=== PATIENT | male | born 1965 | race Caucasian/White ===

== ENCOUNTER 2021-08-10 14:44 | Inpatient (IN) | payer OTHER ==
[~2021-08-10] VITALS: Ht 185.4 cm; Wt 111.1 kg
[2021-08-10 15:22] LABS: HEMOGLOBIN 17.2 gm/dl (14.0-17.5); RED BLOOD COUNT 5.2 M/UL (4.20-5.50); WHITE BLOOD COUNT 16.9 K/UL (4.5-11.0)
[2021-08-10] MEDS ORDERED: CYCLOBENZAPRINE10 MG PO (15:29)
[2021-08-10] MEDS ORDERED: ATORVASTATIN CA10 MG PO (15:29)
[2021-08-10] MEDS ORDERED: LOSARTAN POTAS100 MG PO (15:30)
[2021-08-10] MEDS ORDERED: MELOXICAM15 MG PO (15:30)
[2021-08-10] MEDS ORDERED: GABAPENTIN300 MG PO (15:30)
[2021-08-10] MEDS ORDERED: ZYLOPRIM 300 M300 MG PO (15:32)
[2021-08-10 16:10] LABS: BUN/CREATININE RATIO 14 (0-10)
[2021-08-10] MEDS ORDERED: VITAMIN D21250 MCG PO (17:40)
[2021-08-11 02:46] LABS: RED BLOOD COUNT 5.17 M/UL (4.20-5.50); WHITE BLOOD COUNT 20.9 K/UL (4.5-11.0)
[2021-08-11 02:58] LABS: BUN/CREATININE RATIO 20 (0-10)
[2021-08-11] MEDS ORDERED: ALLOPURINOL300 MG PO (08:35)
[2021-08-11] MEDS ORDERED: HYDROCODON-ACE1 EAC2 PO (08:35)
[2021-08-12 04:03] LABS: HEMOGLOBIN 16.1 gm/dl (14.0-17.5); RED BLOOD COUNT 4.88 M/UL (4.20-5.50); WHITE BLOOD COUNT 23.1 K/UL (4.5-11.0)
[2021-08-12 04:52] LABS: BUN/CREATININE RATIO 29 (0-10)
[2021-08-13 02:54] LABS: HEMOGLOBIN 16.9 gm/dl (14.0-17.5); RED BLOOD COUNT 5.11 M/UL (4.20-5.50); WHITE BLOOD COUNT 19.1 K/UL (4.5-11.0)
[2021-08-13 03:19] LABS: BUN/CREATININE RATIO 26 (0-10)
[2021-08-14 03:17] LABS: HEMOGLOBIN 16.8 gm/dl (14.0-17.5); RED BLOOD COUNT 5.15 M/UL (4.20-5.50); WHITE BLOOD COUNT 18.8 K/UL (4.5-11.0)
[2021-08-15 03:35] LABS: HEMOGLOBIN 16.9 gm/dl (14.0-17.5); RED BLOOD COUNT 5.13 M/UL (4.20-5.50); WHITE BLOOD COUNT 19.1 K/UL (4.5-11.0)
[2021-08-15 03:57] LABS: BUN/CREATININE RATIO 25 (0-10)
--- NOTE | 2021-08-15 10:31 | NUR ---
PT OXYGEN SAT 94% WHILE AMBULATING ON ROOM AIR. AWARE
[2021-08-15] MEDS ORDERED: COZAAR 50MG TAB50 MG PO (12:52)
[2021-08-15] MEDS ORDERED: PREDNISONE10 MG PO (12:52)
[2021-08-15] MEDS ORDERED: IPRAT-ALBUT 0.5-3 ML NEB (12:52)
[2021-08-15] MEDS ORDERED: PROAIR HFA8.5 GM INH (12:52)
[2021-08-15] MEDS ORDERED: CARVEDILOL3.125 MG PO (12:52)
[2021-08-15] MEDS ORDERED: FUROSEMIDE20 MG PO (12:52)
== END 2021-08-15 15:15 | disposition home or self-care (01) | DRG 286 ==
LOC: MED SURG 4 14:44 → PROG CARE 14:44
PROVIDERS: Internal Medicine; Physician Assistant Medical; ADMIT Internal Medicine
PROC: B24BZZZ Ultrasonography of Heart with Aorta (ICD-10-PCS; principal; 2021-08-10)
PROC: 5A0935A Assistance with Respiratory Ventilation, Less than 24 Consecutive Hours, High Flow/Velocity Cannula (ICD-10-PCS; 2021-08-11)
PROC: 4A023N7 Measurement of Cardiac Sampling and Pressure, Left Heart, Percutaneous Approach (ICD-10-PCS; 2021-08-14)
PROC: B2151ZZ Fluoroscopy of Left Heart using Low Osmolar Contrast (ICD-10-PCS; 2021-08-14)
PROC: B2111ZZ Fluoroscopy of Multiple Coronary Arteries using Low Osmolar Contrast (ICD-10-PCS; 2021-08-14)
DX: I25.10 Atherosclerotic heart disease of native coronary artery without angina pectoris (principal); J96.21 Acute and chronic respiratory failure with hypoxia; Z20.822 Contact with and (suspected) exposure to COVID-19; J44.1 Chronic obstructive pulmonary disease with (acute) exacerbation; I50.22 Chronic systolic (congestive) heart failure; N17.9 Acute kidney failure, unspecified; I44.7 Left bundle-branch block, unspecified; F17.210 Nicotine dependence, cigarettes, uncomplicated; B34.8 Other viral infections of unspecified site; M10.9 Gout, unspecified; M81.0 Age-related osteoporosis without current pathological fracture; K80.20 Calculus of gallbladder without cholecystitis without obstruction; K76.0 Fatty (change of) liver, not elsewhere classified; E66.9 Obesity, unspecified; G89.4 Chronic pain syndrome; E11.40 Type 2 diabetes mellitus with diabetic neuropathy, unspecified; I34.0 Nonrheumatic mitral (valve) insufficiency; I42.8 Other cardiomyopathies; I11.0 Hypertensive heart disease with heart failure; E78.5 Hyperlipidemia, unspecified; R00.0 Tachycardia, unspecified; I25.2 Old myocardial infarction; Z82.49 Family history of ischemic heart disease and other diseases of the circulatory system; Z82.0 Family history of epilepsy and other diseases of the nervous system; Z68.32 Body mass index [BMI] 32.0-32.9, adult
CPT/HCPCS: ECHO; 36415; 36600; 71045; 80048; 82550; 82553; 82803; 83735; 83880; 84484; 85025; 85027; 85610; 85730; 93005; 93306; 94640; 94664; 94760; 99152; 99153; C1769; C1887; C1894; J0696; J1644; J1650; J1940; J2250; J2920; J2930; J3010; J7040; Q9965; Q9967

== ENCOUNTER → 2021-11-17 | Outpatient (CLI) | payer OTHER ==
[~2021-11-17] MED LIST: ALLOPURINOL300 MG PO; ATORVASTATIN CA10 MG PO; CARVEDILOL3.125 MG PO; COZAAR 50MG TAB50 MG PO; CYCLOBENZAPRINE10 MG PO; FUROSEMIDE20 MG PO; GABAPENTIN300 MG PO; HYDROCODON-ACE1 EAC2 PO; IPRAT-ALBUT 0.5-3 ML NEB; LOSARTAN POTAS100 MG PO; MELOXICAM15 MG PO; PREDNISONE10 MG PO; PROAIR HFA8.5 GM INH; VITAMIN D21250 MCG PO; ZYLOPRIM 300 M300 MG PO
== END ==
LOC: ECHO 10-01 09:15
DX: I42.9 Cardiomyopathy, unspecified (principal); I08.1 Rheumatic disorders of both mitral and tricuspid valves
CPT/HCPCS: ECHO; 93306

== ENCOUNTER → 2022-04-07 | Outpatient (CLI) | payer OTHER | LOC: HEART 5 03-23 15:00 | DX: I50.22 Chronic systolic (congestive) heart failure (principal); R94.30 Abnormal result of cardiovascular function study, unspecified; I08.1 Rheumatic disorders of both mitral and tricuspid valves | CPT/HCPCS: 93306 ==